=== PATIENT | female | born 2000 | race African-American/Black ===

== ENCOUNTER 2023-06-09 19:41 | Emergency (ER) | payer SELFPAY ==
[2023-06-09 21:35] LABS: Bilirubin Neg (Negative); Blood, Urine 25 (Negative); Clarity Clear (Clear); Glucose, Urine (Dipstick) Normal (Negative); Ketone, Urine Negative (Negative); Leukocyte Negative (Negative); Nitrite Negative (Negative); Protein, Urine (Dipstick) 15 mg/dl (Neg-Trace); Specific Gravity, Urine 1.025 (1.005-1.030); Urobilinogen Normal mg/dL (Less than 2)
[2023-06-09 21:36] LABS: #Eosinphils 0.1 10x3/uL (0.0-0.5); #Monocytes 0.4 10x3/uL (0.0-1.1); #Neutrophils 2.7 10x3/uL (1.5-8.4); %Basophils 0.5 % (0.0-2.0); %Eosinophils 1.6 % (0.0-6.0); %Lymphocytes 48.8 % (18.0-47.0); %Monocytes 6.5 % (0.0-10.0); %Neutrophils 42.4 % (40.0-75.0); Hematocrit 35.4 % (34.9-44.5); Hemoglobin 11.8 g/dL (12.0-15.5); Mean Corpuscular HGB CONC 33.3 g/dL (32.0-36.0); Mean Corpuscular Hemoglobin 28.2 pg (27.0-33.0); Mean Corpuscular Volume 84.5 fl (81.6-98.3); Mean Platelet Volume 11.3 fl (7.4-10.4); Platelet Count 193 10x3/uL (150-450); RBC Distribution Width 13.1 % (11.5-14.5); Red Blood Cell (RBC) Count 4.19 10x6/uL (3.90-5.03); White Blood Cell (WBC) Count 6.3 10x3/uL (3.5-10.5)
[2023-06-09 21:54] LABS: Bacteria/HPF 2+ HPF (None Seen); CAUTI Indications for Culture Pregnancy; Mucous/LPF 4+ LPF (<2+); RBC/HPF 0-3 HPF (0-3); WBC/HPF 0-3 HPF (0-3)
[2023-06-09 21:55] LABS: Sperm/HPF Rare HPF (None Seen)
[2023-06-09 21:56] LABS: Urine Culture Reflex Yes Yes
[2023-06-09 22:00] LABS: ALT (SGPT) Less than 7 U/L (8-55); AST (SGOT) 10 U/L (5-34); Albumin 4.1 g/dL (3.5-5.0); Alkaline Phosphatase 52 U/L (40-110); Anion Gap 13 mmol/L (10-20); BUN (Urea Nitrogen) 9 mg/dL (7.0-18.7); Bilirubin, Total 0.3 mg/dL (0.2-1.2); Calc. Creatinine Clearance 0 mL/min (70-130); Calcium 9.1 mg/dL (7.8-10.44); Carbon Dioxide 22 mmol/L (22-29); Chloride 109 mmol/L (98-107); Estimated GFR 125; Globulin 3.1 g/dL (2.4-3.5); Glucose 86 mg/dL (70-105); Potassium 4.1 mmol/L (3.5-5.1); Protein, Total 7.2 g/dL (6.0-8.3); Sodium 140 mmol/L (136-145)
== END 2023-06-09 22:55 | disposition home or self-care (01) ==
LOC: CSHERS 19:41
DX: O20.0 Threatened abortion (principal); Z3A.01 Less than 8 weeks gestation of pregnancy
CPT/HCPCS: 36415; 76817; 80053; 81001; 84702; 85025; 86900; 86901; 87086

== ENCOUNTER 2023-07-17 19:15 | Emergency (ER) | payer SELFPAY | END 2023-07-17 21:42 | disposition home or self-care (01) | LOC: CSHERS 19:15 | DX: N64.4 Mastodynia (principal) | CPT/HCPCS: 99283 ==

== ENCOUNTER 2024-02-06 22:19 | Inpatient (IN) | payer OTHER ==
[2024-02-06] MEDS ORDERED: Promethazine HCl 25 MG/ML VIAL IM PRN ×2 (22:35→23:47)
[2024-02-06] MEDS ORDERED: fentaNYL 50 mcg/mL 1 mL Vial SLOW IVP PRN (22:35)
[2024-02-06] MEDS ORDERED: hydrALAZINE 20 MG/ML VIAL SLOW IVP PRN (22:35)
[2024-02-06] MEDS ORDERED: Butorphanol Tartrate 1 MG/ML VIAL SLOW IVP PRN (22:35)
[2024-02-06] MEDS ORDERED: Tranexamic Acid 1,000 MG/10 ML VIAL IVP PRN (22:35)
[2024-02-06] MEDS ORDERED: Lidocaine 1% (PF) 30 ML VIAL SC PRN (22:35)
[2024-02-06] MEDS ORDERED: Ondansetron PF 4 MG/2 ML Vial IVP PRN ×2 (22:35→23:47)
[2024-02-06] MEDS ORDERED: Acetaminophen 500 MG TAB PO PRN (22:35)
[2024-02-06] MEDS ORDERED: Diphenoxylate HCl/Atropine Tablet PO PRN (22:35)
[2024-02-06] MEDS ORDERED: Misoprostol 200 MCG TAB PR PRN (22:35)
[2024-02-06] MEDS ORDERED: Carboprost 250 MCG/ML AMP IM PRN (22:35)
[2024-02-06] MEDS ORDERED: Methylergonovine 0.2 MG/ML VIAL IM PRN (22:35)
[2024-02-06] MEDS: Lactated Ringer's 1,000 ML IV SCH (22:53)
[2024-02-06] MEDS: Penicillin G Potassium 5 MILL.UNITS in Sodium Chloride 0.9% 100 ML IVPB SCH (22:53)
[2024-02-06 23:02] LABS: Hematocrit 34.8 % (34.9-44.5); Hemoglobin 11.7 g/dL (12.0-15.5); Mean Corpuscular HGB CONC 33.6 g/dL (32.0-36.0); Mean Corpuscular Hemoglobin 28.7 pg (27.0-33.0); Mean Corpuscular Volume 85.3 fL (81.6-98.3); Mean Platelet Volume 12.2 fL (7.4-10.4); Platelet Count 160 10x3/uL (150-450); RBC Distribution Width 13.6 % (11.5-14.5); Red Blood Cell (RBC) Count 4.08 10x6/uL (3.90-5.03); White Blood Cell (WBC) Count 6.6 10x3/uL (3.5-10.5)
[2024-02-06 23:35] LABS: Syphilis Antibody Nonreactive (Nonreactive); Syphilis Antibody Index 0.06 S/CO (<1.00 Non-Reactive)
[2024-02-06 23:36] LABS: HBsAg Index 0.19 S/CO (0-0.99); Hep B Surf Ag - L&D Non-Reactive S/CO (NonReactive)
[2024-02-06] MEDS ORDERED: fentaNYL 2 mcg/Ropivacaine 0.2% Epidural 100 ML CADD EPIDURAL SCH (23:45)
[2024-02-06] MEDS: fentaNYL/Ropivacaine Epidural 100 ML ONE (23:45)
[2024-02-06] MEDS ORDERED: Communication Order-Pharmacy FS SCH (23:45)
[2024-02-06] MEDS ORDERED: diphenhydrAMINE 50 MG/ML VIAL IVP PRN (23:47)
[2024-02-06] MEDS ORDERED: Moisturizing Cream (Eucerin) 113 GM JAR TOP PRN (23:47)
[2024-02-06] MEDS ORDERED: Naloxone HCl 0.4 mg/ml Vial IVP PRN ×2 (23:47)
[2024-02-06] MEDS ORDERED: ePHEDrine Sulfate 50 MG/10 ML VIAL SLOW IVP PRN (23:47)
[2024-02-06] MEDS ORDERED: Lactated Ringer's 500 ML IV PRN (23:47)
[2024-02-07] MEDS: Penicillin G 2.5 MILL.units 2.5 MILL.UNITS in Premix 1 BAG IVPB SCH (02:50)
[2024-02-07] MEDS: Oxytocin 30 units/NS 500 ML 500 ML IV SCH (03:58)
[2024-02-07 04:20] LABS: Analyzer IN Cardio CS NICU; RapidComm Collect By LDRN
[2024-02-07 04:24] LABS: Analyzer IN Cardio CS NICU; RapidComm Collect By LDRN; pH (Cord, venous) 7.296 (7.250-7.350)
[2024-02-07] MEDS: Ibuprofen 800 MG TAB PO PRN (05:02)
[2024-02-07 06:42] VITALS: BMI 38.7
[2024-02-07] MEDS ORDERED: diphenhydrAMINE 25 MG CAP PO PRN (07:42)
[2024-02-07] MEDS ORDERED: hydrALAZINE 20 MG/ML VIAL SLOW IVP PRN (07:42)
[2024-02-07] MEDS ORDERED: Bisacodyl 10 MG SUPP PR PRN (07:42)
[2024-02-07] MEDS ORDERED: Preparation H Ointment 28 GM TUBE PR PRN (07:42)
[2024-02-07] MEDS ORDERED: Milk Of Magnesia 30 ML UDCUP PO PRN (07:42)
[2024-02-07] MEDS ORDERED: Boostrix 0.5 ML (Tdap) VIAL (>/=7 yrs of age) IM ONE (07:42)
[2024-02-07] MEDS ORDERED: Lanolin Ointment 7 GM TUBE TOP PRN (07:42)
[2024-02-07] MEDS ORDERED: Ferrous Sulfate 325 MG TAB PO SCH (08:00)
[2024-02-07] MEDS: Docusate 100 MG CAP PO SCH (09:22)
[2024-02-07] MEDS: Prenatal Vitamin 1 TAB PO SCH (09:22)
[2024-02-07] MEDS: Acetaminophen 325 MG TAB PO PRN (12:40)
[2024-02-07] MEDS: Ibuprofen 800 MG TAB PO SCH (14:43)
[2024-02-08 10:16] VITALS: BP 132/75; TEMP 97.8
== END 2024-02-08 17:00 | disposition home or self-care (01) | DRG 807 ==
LOC: CSHLD/OP 22:19 → CSHLD 22:56 → EEVIPCON 22:56 → CSHPP 02-07 07:45
PROVIDERS: ADMIT Obstetrics & Gynecology; ATTEND Obstetrics & Gynecology
PROC: 10E0XZZ Delivery of Products of Conception, External Approach (ICD-10-PCS; principal; 2024-02-06)
PROC: 3E033XZ Introduction of Vasopressor into Peripheral Vein, Percutaneous Approach (ICD-10-PCS; 2024-02-06)
DX: O99.214 Obesity complicating childbirth (principal); Z37.0 Single live birth; O99.824 Streptococcus B carrier state complicating childbirth; Z3A.40 40 weeks gestation of pregnancy; O64.0XX0 Obstructed labor due to incomplete rotation of fetal head, not applicable or unspecified; O48.0 Post-term pregnancy
CPT/HCPCS: 36415; 82805; 85027; 86780; 86850; 86900; 86901; 87340; J0595; J2001; J2210; J2540; J2590; J3490